=== PATIENT | male | born 1965 | race Caucasian/White ===

== ENCOUNTER 2021-05-09 13:56 | Outpatient (CLI) | payer OTHER, SELFPAY ==
--- NOTE | ~2021-05-09 | PE_ITS ---
EXAMINATION: PET skull to mid thigh DATE: 05/09/2021 16:02 INDICATION: Bilateral hilar lymphadenopathy. TECHNIQUE: Blood glucose level was 89 mg/dL. 9.686 mCi of 18-fluorodeoxyglucose (18-FDG) was administ ered i.v. Low dose computed tomography (CT) images were acquired from the base of the brain to the pr oximal thighs for attenuation correction and anatomic localization. Automated exposure control was em ployed. Dose-length product (DLP) was 687 mGy-cm. Positron emission tomography (PET) images were acqu ired in the same distribution. COMPARISON: None FINDINGS: Head/neck: There is mucosal thickening in the paranasal sinuses. There is increased activity in the o ral cavity and oropharynx without CT correlate, likely physiologic. There are no pathologically enlar ged lymph nodes. Chest: There is mild scarring at the lung apices. There are a few nodules in the lungs measuring up t o 5 mm in right middle lobe without increased activity. No pleural effusion. The heart size is normal . No pericardial effusion. There is bilateral hilar and mediastinal lymphadenopathy with increased ac tivity. For example, a right hilar node measures 2.4 x 1.9 cm with maximum SUV of 8.1. Abdomen/pelvis/proximal thighs: The liver, gallbladder, spleen, pancreas, adrenal glands, and kidneys are normal. The prostate is mildly enlarged. There are no dilated loops of bowel. The appendix is no rmal. There are no pathologically enlarged lymph nodes. There is no free intraperitoneal fluid. There is mild lumbar spondylosis. IMPRESSION: 1. Mediastinal and bilateral hilar lymphadenopathy with increased activity. The differential diagnosi s includes sarcoid and less likely malignancy such as lymphoma. 2. Pulmonary nodules measuring up to 5 mm without increased activity, likely benign. Reviewed, dictated and finalized at location B. [employer] [facility] IMPRESSION: 1. Mediastinal and bilateral hilar lymphadenopathy with increased activity. The differential diagnosis includes sarcoid and less likely malignancy such as lym phoma. 2. Pulmonary nodules measuring up to 5 mm without increased activity, likely be nign.
[2021-05-09 14:24] LABS: Glucose Point of Care 89 mg/dl (65-105)
== END 2021-05-09 13:57 | disposition home or self-care (01) ==
LOC: ANHIMG 14:05
PROVIDERS: Visit Provider Internal Medicine Pulmonary Disease
DX: R91.1 Solitary pulmonary nodule (principal)
CPT/HCPCS: 78815; A9552